=== PATIENT | female | born 1950 | race Caucasian/White ===

== ENCOUNTER 2018-07-30 09:26 | Outpatient (REF) | payer MEDICARE, SELFPAY ==
[2018-07-30 13:11] LABS: Anion Gap 7.9 mmol/L (3-11); BUN 18 mg/dL (7-18); CO2 30.1 mmol/L (21.0-32.0); CREATININE 0.68 mg/dL (0.55-1.02); Calcium 9.4 mg/dL (8.5-10.1); Chloride 103 mmol/L (98-107); Cholesterol 210 mg/dL (50-200); Glucose 104 mg/dL (70-100); HDL Cholesterol 66 mg/dL (40-60); LDL CHOLESTEROL 118 mg/dL (<100); Potassium 4.8 mmol/L (3.5-5.1); Sodium 141 mmol/L (136-145); Triglyceride 87 mg/dL (30-150)
== END 2018-07-30 09:46 ==
LOC: NCHCN 09:26
PROVIDERS: PCP Nurse Practitioner Family; Visit Provider Nurse Practitioner Family
DX: E78.5 Hyperlipidemia, unspecified (principal)
CPT/HCPCS: 80048; 80061; 83721

== ENCOUNTER 2018-08-30 01:26 | Outpatient (CLI) | payer MEDICARE, SELFPAY ==
--- NOTE | 2018-08-30 10:30 | DI.MAMMO_ITS ---
SYMPTOM/DIAGNOSIS: SCREENING, [facility] Z00.00 BILATERAL SCREENING MAMMOGRAM: Mammograms were interpreted according to the usual protocol including computer analysis with CAD system, tomosynthesis and C view imaging. Comparison is made with exams from 2011 through 2017. The breasts are composed of heterogeneously dense fibroglandular tissue, breast density category C. No suspicious masses or suspicious microcalcifications are seen. There has been no significant change. IMPRESSION: Category 1, negative mammogram. Yearly screening mammography is recommended. Breast density category C. SA ASSESSMENT OF FINDINGS: Negative. Category 1. Patient will receive a letter notifying them of these results. Bi-RADS category C. The breasts are heterogeneously dense, which may obscure small masses.
== END 2018-08-30 01:46 ==
PROVIDERS: PCP Nurse Practitioner Family; Visit Provider Nurse Practitioner Family
DX: Z12.31 Encounter for screening mammogram for malignant neoplasm of breast (principal)
CPT/HCPCS: 77063; 77067

== ENCOUNTER 2020-09-13 19:13 | Outpatient (REF) | payer MEDICARE, SELFPAY ==
[2020-09-13 19:43] LABS: HCT 43.8 % (36.0-46.0); HGB 13.9 g/dL (11.2-15.7); MCH 30.3 pg (27.0-33.0); MCHC 31.7 % (32.0-36.0); MCV 95.6 fL (80-95); MPV 10.6 fL (8.0-11.0); Platelet Count 241 10^3/uL (130-400); RBC 4.58 10^6/uL (3.93-5.22); RDW 13.3 % (11.7-14.6); RDW-SD 47.5 fL; WBC 5.72 10^3/uL (4.4-10.8)
[2020-09-13 19:57] LABS: ALT 41 U/L (14-59); AST 22 U/L (15-37); Albumin 3.8 g/dL (3.4-5.0); Alkaline Phosphatase 92 U/L (46-116); Anion Gap 9.6 mmol/L (3-11); BUN 22 mg/dL (7-18); Bilirubin, Total 0.5 mg/dL (0.2-1.0); CO2 29.4 mmol/L (21.0-32.0); CREATININE 0.8 mg/dL (0.55-1.02); Calcium 9.7 mg/dL (8.5-10.1); Calculated LDL 108 mg/dL (<100); Chloride 105 mmol/L (98-107); Cholesterol 187 mg/dL (<200); Glucose 102 mg/dL (74-106); HDL Cholesterol 61 mg/dL (40-60); Potassium 4.4 mmol/L (3.5-5.1); Sodium 144 mmol/L (136-145); Total Protein 6.9 g/dL (6.4-8.2); Triglyceride 94 mg/dL (<150)
== END 2020-09-13 19:14 | disposition home or self-care (01) ==
LOC: NCHCN 19:13
PROVIDERS: PCP Nurse Practitioner Family; Visit Provider Nurse Practitioner Family
DX: Z00.00 Encounter for general adult medical examination without abnormal findings (principal); E78.5 Hyperlipidemia, unspecified
CPT/HCPCS: 80053; 80061; 85027

== ENCOUNTER 2020-11-07 15:10 | Outpatient (REF) | payer MEDICARE, SELFPAY ==
[2020-11-09 11:13] LABS: Campylobacter PCR Negative (Negative); Salmonella PCR Negative (Negative); Shiga Toxin PCR Negative (Negative); Shigella/Enteroinvasive Ecoli Negative (Negative)
== END 2020-11-07 15:11 | disposition home or self-care (01) ==
LOC: LBN 15:10
PROVIDERS: PCP Nurse Practitioner Family; Visit Provider Internal Medicine Gastroenterology
DX: K52.9 Noninfective gastroenteritis and colitis, unspecified (principal)
CPT/HCPCS: 87329; 87505; 83630; 87177

== ENCOUNTER → 2021-09-13 00:44 | Outpatient (CLI) | payer MEDICARE, OTHER, SELFPAY ==
--- NOTE | 2021-09-13 | DI.DEXA_ITS ---
Exam(s) XR DEXA BONE DENSITY W/WO SUMMER EXAM: XR DEXA BONE DENSITY W/WO SUMMER CLINICAL HISTORY: OSTEOPENIA, M85.88 TECHNIQUE: [employer] C densitometer analysis of left hip, lumbar spine and left forearm. COMPARISON: 2017 FINDINGS: Lateral view of the thoracic and lumbar spine shows no evidence of compression fractures. Bone mineral density measurements of the lumbar spine correspond to a total T-score of -0.7, in the normal range.. This is not significantly changed from the prior exam Bone mineral density measurements of the left hip correspond to a total T-score of 0. The femoral n sahara T-score is -1.1, in the osteopenic range. The hip bone mineral density has decreased 6.9 percen t compared with 2017.. The left forearm bone mineral density measurements correspond to a T-score of the distal 3rd of -1.9 , in the osteopenic range. This represents a 4.1 percent decrease compared to 2017.. IMPRESSION: Osteopenia of the left forearm and left hip. Normal bone mineral density of the lumbar spine
== END ==
PROVIDERS: PCP Nurse Practitioner Family; Visit Provider Internal Medicine Gastroenterology
DX: M85.89 Other specified disorders of bone density and structure, multiple sites (principal)
CPT/HCPCS: 77080

== ENCOUNTER → 2021-09-13 00:45 | Outpatient (CLI) | payer MEDICARE, OTHER, SELFPAY ==
--- NOTE | 2021-09-13 11:20 | DI.MAMMO_ITS ---
Exam(s) MAMMO SCREENING EXAM: MAMMO SCREENING CLINICAL HISTORY: SCREENING FOR BREAST CA, Z12.39 TECHNIQUE: Mammograms were interpreted according to the usual protocol including computer analysis w [employer] CAD system, tomosynthesis and C-view imaging. COMPARISON: 2013 through 2018 FINDINGS: The breasts are composed of scattered fibroglandular densities, Breast Density category B. No suspicious masses or suspicious microcalcifications are seen. No skin thickening or abnormal axillary lymph nodes are seen. There has been no significant change from prior exams. IMPRESSION: BI-RADS Category 1, Negative mammogram Yearly screening mammography is recommended. Breast Density - Category B, scattered fibroglandular densities. A negative radiographic report should not delay biopsy if a dominant or clinically suspicious mass is present. Up to ten percent of cancers are not identified on mammography. A negative report may reinforce clinical impression. Adenosis and dense breasts may obscure an underlying neoplasm. False positive reports average 6 to 10%. Patient will receive a letter notifying them of these results.
== END ==
PROVIDERS: PCP Nurse Practitioner Family; Visit Provider Internal Medicine Gastroenterology
DX: Z12.31 Encounter for screening mammogram for malignant neoplasm of breast (principal)
CPT/HCPCS: 77063; 77067; 77080

== ENCOUNTER 2021-09-25 01:39 | Outpatient (CLI) | payer MEDICARE, OTHER, SELFPAY ==
[2021-09-26 05:22] LABS: Vitamin D 25 Total 34.5 ng/mL (30-100)
== END 2021-09-25 01:40 | disposition home or self-care (01) ==
LOC: LBO 01:40
PROVIDERS: PCP Nurse Practitioner Family; Visit Provider Internal Medicine Gastroenterology
DX: M85.9 Disorder of bone density and structure, unspecified (principal)
CPT/HCPCS: 36415; 82306

== ENCOUNTER 2022-01-06 11:48 | Outpatient (CLI) | payer MEDICARE, OTHER, SELFPAY ==
--- NOTE | 2022-01-06 11:15 | DI.RAD_ITS ---
Exam(s) XR KNEE LT 3V AP,LAT,ROSA EXAM: XR KNEE LT 3V AP,LAT,ROSA CLINICAL HISTORY: s/p fall. TECHNIQUE: 2D digital imaging was performed. Three views. COMPARISON: No exams were available for comparison FINDINGS: BONES: No acute fracture is present. No bony destructive lesion is seen. Mild periarticular spurring throughout. JOINTS: The knee is normally aligned. No joint effusion is seen. SOFT TISSUE: Small bony density seen lateral to patella. IMPRESSION: Mild degenerative changes. Small bony density lateral to the patella could represent a joint space l oose body. DATA REPOSITORY: RADIATION DOSE DELIVERED:
--- NOTE | 2022-01-06 11:15 | DI.RAD_ITS ---
Exam(s) XR KNEE RT 3V AP,LAT,ROSA EXAM: XR KNEE RT 3V AP,LAT,ROSA CLINICAL HISTORY: history of surgery. TECHNIQUE: 2D digital imaging was performed. Three views. COMPARISON: No exams were available for comparison FINDINGS: The patella is dislocated laterally with respect to the femur. There is severe narrowing of the later al femoral tibial joint space. There is some subluxation laterally of the tibia with respect to the d istal femur. There is no visible joint effusion. IMPRESSION: Lateral dislocation of the patella. Degenerative changes, greatest of lateral femoral tibial joint. DATA REPOSITORY: RADIATION DOSE DELIVERED:
== END 2022-01-06 11:49 | disposition home or self-care (01) ==
LOC: DIORS 11:48
PROVIDERS: PCP Nurse Practitioner Family; Referring Provider Nurse Practitioner Family; Visit Provider Physician Assistant Surgical
DX: M17.12 Unilateral primary osteoarthritis, left knee; M17.11 Unilateral primary osteoarthritis, right knee; M23.92 Unspecified internal derangement of left knee; S83.004D Unspecified dislocation of right patella, subsequent encounter; X58.XXXD Exposure to other specified factors, subsequent encounter
CPT/HCPCS: 20610; 73562; 99203; J1040

== ENCOUNTER 2022-02-25 18:19 | Outpatient (REF) | payer MEDICARE, OTHER, SELFPAY ==
[2022-02-25 17:47] LABS: HCT 42.9 % (36.0-46.0); HGB 13.7 g/dL (11.2-15.7); MCH 29.8 pg (27.0-33.0); MCHC 31.9 % (32.0-36.0); MCV 94 fL (80-95); MPV 10.6 fL (8.0-11.0); Platelet Count 279 10^3/uL (130-400); RBC 4.59 10^6/uL (3.93-5.22); RDW 13.3 % (11.7-14.6); RDW-SD 45.8 fL; WBC 5.58 10^3/uL (4.4-10.8)
[2022-02-25 17:58] LABS: BUN 22 mg/dL (7-18); CREATININE 0.8 mg/dL (0.55-1.02); Calcium 9.4 mg/dL (8.5-10.1); Chloride 105 mmol/L (98-107); Estimated GFR 79.22 (mL/min/1.73m2); Glucose 95 mg/dL (74-106); Potassium 4.2 mmol/L (3.5-5.1); Sodium 141 mmol/L (136-145); TSH (W/Ref FT4) 0.79 uIU/mL (0.36-3.74)
== END 2022-02-25 18:20 | disposition home or self-care (01) ==
LOC: NCHCN 18:19
PROVIDERS: PCP Nurse Practitioner Family; Visit Provider Nurse Practitioner Family
DX: R00.2 Palpitations (principal)
CPT/HCPCS: 80048; 85027; 84443

== ENCOUNTER 2022-03-27 08:43 | Outpatient (RCR) | payer MEDICARE, OTHER, SELFPAY | END 2022-04-08 23:59 | disposition home or self-care (01) | LOC: CARDOPNVT 08:43 | PROVIDERS: PCP Nurse Practitioner Family; Visit Provider Nurse Practitioner Family | CPT/HCPCS: 93225; 93226 ==

== ENCOUNTER 2022-04-10 10:18 | Outpatient (RCR) | payer MEDICARE, OTHER, SELFPAY ==
--- NOTE | 2022-04-10 10:15 | HOLTER_ITS ---
APPROVED REPORT Conclusion This is a 48-hour Holter monitor ordered for palpitations Predominant rhythm was sinus with an average heart rate of 71. Minimum was 58, maximum 102 There were very rare isolated atrial and ventricular ectopic beats There was 1 atrial triplet, one 5 beat self-limited atrial run There was no atrial fibrillation, no high-grade AV block, no pauses greater than 3 seconds
== END 2022-05-06 23:59 | disposition home or self-care (01) ==
LOC: CARDOPNVT 10:18
PROVIDERS: PCP Nurse Practitioner Family; Visit Provider Internal Medicine Cardiovascular Disease
DX: R00.2 Palpitations (principal); I49.1 Atrial premature depolarization
CPT/HCPCS: 93227; 93225; 93226

== ENCOUNTER 2022-08-12 12:42 | Outpatient (RCR) | payer MEDICARE, OTHER, SELFPAY ==
--- NOTE | 2022-08-12 13:00 | HOLTER_ITS ---
APPROVED REPORT Conclusion This is a 48-hour Holter monitor ordered for palpitations Rhythm throughout was sinus with an average heart rate of 78. Minimum was 59, maximum 122 There were very rare isolated atrial and ventricular ectopic beats There was no atrial fibrillation, no SVT, no high-grade AV block, no pauses greater than 3 seconds
== END 2022-09-05 23:59 | disposition home or self-care (01) ==
LOC: CARDOPNVT 12:42
PROVIDERS: PCP Nurse Practitioner Family; Visit Provider Nurse Practitioner Family
DX: R00.2 Palpitations (principal); I49.3 Ventricular premature depolarization
CPT/HCPCS: 93227; 93225; 93226

== ENCOUNTER 2022-08-25 01:19 | Outpatient (CLI) | payer MEDICARE, OTHER, SELFPAY ==
--- NOTE | 2022-08-25 | ETT_ITS ---
APPROVED REPORT Exam: Exercise Treadmill Patient Location: Out-Patient Room/Bed: Stress Nurse: Fanta Naik RN Ordering Provider:RUBEN GALLAGHER [place], Contact Number: [phone] BMI: 29.26 Baseline Rhythm: Sinus Rhythm Indications: Palpitations, SOB, Dizziness Medical History Medical History: HLD, GERD, osteopenia, hx of dizziness, osteoarthritis Cardiac Medications: Aleve, aspirin, atorvastatin, omeprazole Allergies: None known Cardiac Risk Factors: Family hx, HLD Previous Cardiac Procedures: None Pretest Chest Pain Characteristics: None Exercise History: Indeterminate Physical Disabilities: Knees Lung Sounds: Clear to auscultation Heart Sounds: Regular Stress Test Details Rest Stress HR Resting HR Supine: 62 bpm Max Heart Rate (APMHR): 149 bpm Resting HR Standin bpm Target HR (85% APMHR): 127 bpm Max HR Achieved: 145 bpm % of APMHR: 97 Recovery HR: 70 bpm HR response to stress: Normal HR response to stress BP Resting BP Supine: 126/82 mmHg Resting BP Standin/78 mmHg Max BP: 162/80 mmHg Recovery BP: 132/82 mmHg BP response to stress: Normal blood pressure response to stress. ECG Resting ECG: Sinus Rhythm Ectopy: None Stress ECG: Sinus Tachycardia ST Change: Horizontal ST depression Lead(s): inferior leads Stage: 1, [address] Deviation: 1.5-2 mm Arrhythmia: None Recovery ECG: Sinus Rhythm Recovery ST Change: No significant ST segment changes noted Recovery Arrhythmia: None Comment: ST depression recovered quickly. Clinical Reason for Termination: Target HR Achieved Stress Symptoms: Moderate SOB, fatigue Exercise duration: 04 min10 sec Highest Stage Reached: Stage 2: 2.5 mph at 12% grade. Exercise capacity: 6.04 METs Angina Score: None Barrera Treadmill Score: -1.5 Rate Pressure Product: [id number] Stress ECG Conclusion 1. Resting electrocardiogram showed poor R wave progression 2. Patient exercised on a Giovanni protocol completed a workload of 6.04 METS, limited by shortness of b reath and fatigue 3. Accelerated heart rate response to exercise. The patient achieved 97% of predicted heart rate for age 4. Electrocardiographic portion of the test was negative for myocardial ischemia 5. There were no significant dysrhythmias Barrera Treadmill Score is -1.5 which is Moderate risk. Stress Test Summary STAGE Time (mins) Speed (mph) Grade (%) HR BP SpO2 SYMPTOMS METS Supine 62 126/82 97 Standing 74 120/78 97 1 3 1.7 10 136 142/88 96 Mod SOB 4.5 2 6 2.5 12 145 Mod SOB 7 1 min recovery 113 162/80 98 Resovling SOB 3 min recovery 75 142/84 98 Resovling SOB 6 min recovery 70 132/82 99 SOB resolved
== END 2022-08-25 01:39 ==
LOC: DI 01:19
PROVIDERS: PCP Nurse Practitioner Family; Visit Provider Nurse Practitioner Family
DX: R06.02 Shortness of breath (principal)
CPT/HCPCS: 93016; 93018; 93017

== ENCOUNTER 2022-10-07 15:46 | Emergency (ER) | payer MEDICARE, OTHER, SELFPAY ==
[2022-10-07] VITALS (21 sets, daily range): BP systolic 124–167; BP diastolic 51–95; PULSE 70–81; RESP 12–21; TEMP 36.3; O2SAT 95–99
--- NOTE | 2022-10-07 15:45 | RT.EKG_ITS ---
APPROVED REPORT Exam: Resting ECG Reason for Exam: Palpitations Patient Location: E HR:73 bpm ECG Measurements Heart Rate 73 AXIS TN 124 P 30 QRSd 83 QRS 89 QT 401 T 50 QTc 443 Conclusion Sinus rhythm...normal P axis, V-rate 60- 99 Low voltage, precordial leads...precordial leads <1.0mV
--- NOTE | 2022-10-07 16:00 | DI.RAD_ITS ---
Exam(s) XR CHEST 2V PA LATERAL EXAM: XR CHEST 2V PA LATERALzz CLINICAL HISTORY: Palpitations, TECHNIQUE: 2D digital imaging was performed. COMPARISON: CR PORTABLE CHEST ONE VIEW from 01/20/2013 FINDINGS: HEART: Normal size. Aorta: Not dilated. PULMONARY VASCULATURE: Normal. LUNGS: Clear. PLEURAL SPACE: No pleural effusion or pneumothorax. BONE:Unremarkable for age. IMPRESSION: No acute abnormality. DATA REPOSITORY: RADIATION DOSE DELIVERED:
--- NOTE | 2022-10-07 16:07 | ED.GENADUL_ITS ---
Discharge Plan Disposition Patient Disposition: Home Condition: Stable Discharge Details Clinical Impression: Heart palpitations, Hypertension Primary Care Provider: Liza Antony ED Provider: Gypsy Smith Home Meds and New Rx's Prescriptions: New metoprolol tartrate 25 mg tablet 12.5 mg PO DAILY Qty: 14 0RF Rx Instructions: Take half a tablet daily. Stop if dizzy or lightheaded. Continued Konsyl Sugar-Free 300 GM powder 300 g PO BID atorvastatin 20 mg tablet 20 mg PO QHS fluticasone propionate [Allergy Relief (fluticasone)] 50 mcg/actuation spray,suspension 2 spray intranasal DAILY Rx Instructions: administer into each nostril omeprazole 20 mg capsule,delayed release(DR/EC) 20 mg PO DAILY estradiol [Vagifem] 10 mcg tablet 10 mcg vaginal .COMPLEX Rx Instructions: 10 mcg vaginally TWICE PER WEEK; aspirin [Adult Aspirin Regimen] 81 mg tablet,delayed release (DR/EC) 81 mg PO DAILY omega-3 fatty acids-fish oil 340-1,000 mg capsule 340 cap PO DAILY naproxen sodium [Aleve] 220 mg tablet 440 mg PO DAILY PRN multivitamin Tablet 1 tab PO DAILY Discharge Instructions Instructions: Heart Palpitations (ED), Hypertension (ED) Additional Instructions: Take the metoprolol as directed once daily. Please check your blood pressure and heart rate at the same time every day. Please follow-up with your PCP. Follow up with primary care provider in 3-5 days. Return to ED sooner if any worsening chest pain, arm pain, shortness of breath, lightheadedness dizziness or concerns. Increase oral fluids. If you check your heart rate and blood pressure and the heart rate is less than 60 or your blood pressure is less than 90 on the top number please stop taking the metoprolol. At this time there is no evidence of pneumonia, heart attack or heart damage. You are placed on care management list to follow-up with your PCP. Referrals: Liza Antony [Primary Care Provider] - 5 days Discharge Data Discharge Date/Time-TO BE ENTERED AT DEPARTURE: 10/07/22 18:13 Medical Decision Making 72-year-old female presents to the ER with a chief complaint of heart fluttering and palpitations which has been ongoing for the last 3 hours. Patient reports that at rest she will have intermittent episodes of pounding in her chest. This is associated with arm heaviness and left arm pain. It has resolved upon arrival heart rate is 76 normal sinus rhythm. She has recently had a Holter monitor placed on August 12 of this year and an exercise stress test on August 25 of this year. She does take a baby aspirin daily. She does have a history of hyperlipidemia and osteoarthritis, GERD. She denies any chest pain or chest heaviness, denies any shortness of breath. She reports that she feels heavy when this episodes occur. She does report occasional diarrhea none in the last couple of days. No vomiting she does endorse nausea. She endorses occasional alcohol couple glasses of wine she is a non-smoker. Cardiac work-up ordered including EKG and serial troponins, D-dimer chest x-ray and TSH level with refractory T4. EKG at this time shows normal sinus rhythm. EKG was reviewed by Dr. Farah ER attending, no STEMI, old EKG available for review, please see his official report. At this time work-up is relatively within normal limits, patient is slightly hypertensive blood pressure 167/95, additional reading greater than 140/90, she reports she did have an episode of palpitations which was not captured on her monitor. CBC within normal limits, D-dimer negative, CMP shows slightly elevated BUN at 21, glucose 145, TSH within normal limits, initial troponin less than 50. Did discuss possible starting on metoprolol 12.5 mg p.o. which was ordered and close follow-up with PCP in 2 weeks or less to discuss Holter monitor results and stress test results. Patient and family verbalized understanding. Discussed risks and benefits of awaiting serial Troponin, patient requesting to be discharged home. Will place patient on care management list to have a sooner PCP appointment within 2 weeks. Patient also states that she will call the office to get a sooner appointment to discuss her test. We will send patient home with prescription for metoprolol 12.5 mg once daily. I did discuss medication and red flags to stop for and or to return to the ER. Patient has remained chest pain-free. This text was generated using [employer] system, please disregard any oddities of phrase or misspellings. Medical Records Medical records reviewed: Yes I reviewed the patient's medical records. Medical records narrative: Patient had a Holter monitor on August 12 which showed rare atrial ectopic beats, DATE/TIME OF SERVICE: 08/12/22 APPROVED REPORT Conclusion This is a 48-hour Holter monitor ordered for palpitations Rhythm throughout was sinus with an average heart rate of 78.? Minimum was 59, maximum 122 There were very rare isolated atrial and ventricular ectopic beats There was no atrial fibrillation, no SVT, no high-grade AV block, no pauses greater than 3 seconds <Electronically signed by DENZEL LONGORIA MD in OV> ? E-Sign Date:? 08/18/22 ? E-Sign Time:? 0811? stress test on August 25, 2022 which showed poor R wave progression negative for myocardial ischemia. Conclusion noted below: Stress ECG Conclusion 1. Resting electrocardiogram showed poor R wave progression 2. Patient exercised on a Giovanni protocol completed a workload of 6.04 METS, limited by shortness of breath and fatigue 3. Accelerated heart rate response to exercise.? The patient achieved 97% of predicted heart rate for age 4. Electrocardiographic portion of the test was negative for myocardial ischemia 5. There were no significant dysrhythmias Barrera Treadmill Score is -1.5 which is Moderate risk. Stress Test Summary STAGE Time (mins) Speed (mph) Grade (%) HR BP SpO2 SYMPTOMS METS Supine 62 126/82 97 Standing 74 120/78 97 1 3 1.7 10 136 142/88 96 Mod SOB 4.5 2 6 2.5 12 145 Mod SOB 7 1 min recovery 113 162/80 98 Resovling SOB 3 min recovery 75 142/84 98 Resovling SOB 6 min recovery 70 132/82 99 SOB resolved Dictated by:? VON VELEZ,DENZEL BEJARANO Lab Data Lab results reviewed: Yes I reviewed the patient's lab results. Labs: Laboratory Tests Range/Units 10/07/22 10/07/22 10/07/22 16:20 16:20 16:20 WBC (4.4-10.8) 10^3/uL 5.93 RBC (3.93-5.22) 10^6/uL 4.60 Hgb (11.2-15.7) g/dL 13.9 Hct (36.0-46.0) % 42.5 MCV (80-95) fL 92 MCH (27.0-33.0) pg 30.2 MCHC (32.0-36.0) % 32.7 RDW (11.7-14.6) % 13.2 Plt Count (130-400) 10^3/uL 257 MPV (8.0-11.0) fL 9.7 Immature Gran % 0.3 Neutrophils % 59.1 Lymphocytes % 29.8 Monocytes % 7.9 Eosinophils % 2.2 Basophils % 0.7 Nucleated RBC % (0.0-0.3) % 0.0 Absolute Neutrophils (1.2-6.7) 10^3/uL 3.50 Absolute Lymphocytes (1.2-3.4) 10^3/uL 1.77 Absolute Monocytes (0.1-0.8) 10^3/uL 0.47 Absolute Eosinophils (0.0-0.7) 10^3/uL 0.13 Absolute Basophils (0.0-0.2) 10^3/uL 0.04 D-Dimer (<500) ng/mlFEU 333 Sodium (136-145) mmol/L 143 Potassium (3.5-5.1) mmol/L 3.6 Chloride (98-107) mmol/L 106 Carbon Dioxide (21.0-32.0) mmol/L 29.9 Anion Gap (3-11) mmol/L 7.1 BUN (7-18) mg/dL 21 H Creatinine (0.55-1.02) mg/dL 0.8 Est GFR (CKD-EPI 2020) (mL/min/1.73m2) 78.72 Glucose (74-106) mg/dL 145 H Calcium (8.5-10.1) mg/dL 9.2 Magnesium (1.8-2.4) mg/dL 2.1 Total Bilirubin (0.2-1.0) mg/dL 0.2 AST (15-37) U/L 20 ALT (14-59) U/L 28 Alkaline Phosphatase (46-116) U/L 92 Troponin I (<or=60) ng/L < 50 Total Protein (6.4-8.2) g/dL 7.0 Albumin (3.4-5.0) g/dL 3.7 TSH (0.36-3.74) uIU/mL Range/Units 10/07/22 16:20 WBC (4.4-10.8) 10^3/uL RBC (3.93-5.22) 10^6/uL Hgb (11.2-15.7) g/dL Hct (36.0-46.0) % MCV (80-95) fL MCH (27.0-33.0) pg MCHC (32.0-36.0) % RDW (11.7-14.6) % Plt Count (130-400) 10^3/uL MPV (8.0-11.0) fL Immature Gran % Neutrophils % Lymphocytes % Monocytes % Eosinophils % Basophils % Nucleated RBC % (0.0-0.3) % Absolute Neutrophils (1.2-6.7) 10^3/uL Absolute Lymphocytes (1.2-3.4) 10^3/uL Absolute Monocytes (0.1-0.8) 10^3/uL Absolute Eosinophils (0.0-0.7) 10^3/uL Absolute Basophils (0.0-0.2) 10^3/uL D-Dimer (<500) ng/mlFEU Sodium (136-145) mmol/L Potassium (3.5-5.1) mmol/L Chloride (98-107) mmol/L Carbon Dioxide (21.0-32.0) mmol/L Anion Gap (3-11) mmol/L BUN (7-18) mg/dL Creatinine (0.55-1.02) mg/dL Est GFR (CKD-EPI 2020) (mL/min/1.73m2) Glucose (74-106) mg/dL Calcium (8.5-10.1) mg/dL Magnesium (1.8-2.4) mg/dL Total Bilirubin (0.2-1.0) mg/dL AST (15-37) U/L ALT (14-59) U/L Alkaline Phosphatase (46-116) U/L Troponin I (<or=60) ng/L Total Protein (6.4-8.2) g/dL Albumin (3.4-5.0) g/dL TSH (0.36-3.74) uIU/mL 0.78 ECG Data Prior ECG tracings: available for review Core Measures AMI Core Measures Followed: No Measure exclusions: not indicated HPI General Mode of arrival: ambulatory . Date/Time Provider Initiated Documentation: 10/07/22 15:48 . Limitations to Documentation: no limitations . Information obtained by: patient, RN notes reviewed and old records reviewed . HPI Narrative: 72-year-old female presents to the ER with a chief complaint of heart fluttering and palpitations which has been ongoing for the last 3 hours. Patient reports that at rest she will have intermittent episodes of pounding in her chest. This is associated with arm heaviness and left arm pain. It has resolved upon arrival heart rate is 76 normal sinus rhythm. She has recently had a Holter monitor placed on August 12 of this year and an exercise stress test on August 25 of this year. She does take a baby aspirin daily. She does have a history of hyperlipidemia and osteoarthritis, GERD. She denies any chest pain or chest heaviness, denies any shortness of breath. She reports that she feels heavy when this episodes occur. She does report occasional diarrhea none in the last couple of days. No vomiting she does endorse nausea. She endorses occasional alcohol couple glasses of wine she is a non-smoker. Related Data Home Medications Medication Instructions Recorded Confirmed psyllium husk 6 gram/6 gram oral 300 g PO BID 11/11/13 01/08/22 powder (Konsyl Sugar-Free) aspirin 81 mg tablet,delayed 81 mg PO DAILY 11/18/21 10/07/22 release (Adult Aspirin Regimen) atorvastatin 20 mg tablet 20 mg PO QHS 11/18/21 10/07/22 estradiol 10 mcg vaginal tablet 10 mcg vaginal .COMPLEX 11/18/21 01/08/22 (Vagifem) fluticasone propionate 50 2 spray intranasal DAILY 11/18/21 10/07/22 mcg/actuation nasal spray,suspension (Allergy Relief (fluticasone)) multivitamin 1 tab PO DAILY 11/18/21 10/07/22 naproxen sodium 220 mg tablet 440 mg PO DAILY PRN 11/18/21 10/07/22 (Aleve) omega-3 fatty acids-fish oil 340 340 cap PO DAILY 11/18/21 01/08/22 mg-1,000 mg capsule omeprazole 20 mg capsule,delayed 20 mg PO DAILY 11/18/21 10/07/22 release metoprolol tartrate 25 mg tablet 12.5 mg PO DAILY Palpitations #14 10/07/22 tabs Previous Rx's Medication Instructions Recorded metoprolol tartrate 25 mg tablet 12.5 mg PO DAILY Palpitations #14 10/07/22 tabs Allergies Allergy/AdvReac Type Severity Reaction Status Date / Time No Known Allergies Allergy Unverified 10/07/22 15:58 General Stated Complaint: Palpitatns AUDREY: 3 Review of Systems All systems reviewed & are unremarkable except as noted in HPI and below Cardiovascular Cardiovascular: Reports as per HPI, Reports irregular heart rhythm, Reports radiating jaw, neck or arm pain, Denies dyspnea and Reports other (Arm heaviness and left arm pain) Respiratory Respiratory: Denies cough, Denies excessive phlegm production, Denies dyspnea, Denies stridor and Denies wheezing Gastrointestinal Gastrointestinal: Denies abdominal pain, Reports diarrhea (None in the last couple of days she attributes it to lactose intolerance), Reports nausea and Denies vomiting Allergic/Immunologic Allergic/Immunologic: Denies wheezing PFSH All Active Problems (Updated 10/07/22 @ 17:57 by Gypsy Smith NP) Heart palpitations (Acute) Hypertension (Chronic) Dislocation of patella, right, closed (Chronic) Chronic Internal derangement of left knee (Acute) DEPO 01/06/22 Medical History Hyperlipemia, mixed Osteoarthritis Surgical History Arthroplasty of knee right Family History Mother Irritable bowel syndrome (IBS) Brother Irritable bowel syndrome (IBS) Social History Smoking/Tobacco Use Status: Never Smoking risk assessment performed?: Yes Drug use: Never Substance use type: does not use Do you feel safe at home: Yes Do you feel safe in your relationship?: Yes Exam Narrative Exam Narrative: Constitutional: Alert and oriented x3. Appears stated age. Normal body habitus. Head: Normocephalic, no trauma. Eyes: Pupils PERRL, Red reflex noted, EOM's intact. Eyelids symmetrical without lesions, discharge, or swelling. ENT: Bilateral TM's WNL, External ear normal to inspection, no mastoid TTP, swelling, or erythema, Nasal turbinates WNL, no nasal discharge. Normal dentition, Posterior pharynx WNL, no exudate. Chest: RRR, Normal S1, S2, distal pulses intact. Resp: Lungs clear to auscultation bilaterally, no wheezes, rales, or rhonchi. Abdomen: Soft, non-distended, Normoactive bowel sounds all 4 quads. Musculoskeletal: Normal gait, 5/5 strength to all four extremities. No significant pitting edema noted to bilateral lower extremities. Skin: No suspicious rashes or lesions. Capillary refill less than 2 sec. Neurologic: Cranial nerves II-XII intact. Alert and oriented x 3. Motor: No deficits noted. Sensory: Intact bilaterally all 4 extremities. . Hematologic/Lymphatic: No ecchymosis, no lymphadenopathy. Course Vital Signs Vital signs: Vital Signs Temperature 36.3 C L 10/07/22 15:51 Pulse 76 10/07/22 15:51 Respiratory Rate 16 10/07/22 15:51 Blood Pressure 158/77 H 10/07/22 15:51 Pulse Oximetry 99 10/07/22 15:51 Temperature 36.3 C L 10/07/22 15:51 Pulse 76 10/07/22 16:02 Pulse 71 10/07/22 16:03 Respiratory Rate 16 10/07/22 16:03 Respiratory Effort Normal 08/01/23 15:56 Blood Pressure 167/95 H 10/07/22 16:02 Blood Pressure Mean 113 10/07/22 16:02 Pulse Oximetry 98 10/07/22 16:03 Oxygen Delivery Method Room Air 10/07/22 15:51 Oxygen Flow Rate 0 10/07/22 15:51
[2022-10-07] MEDS: Aspirin 81 MG CHEW 243 MG CH (16:13)
[2022-10-07 16:30] LABS: Abs Immature Grans 0.02 10^3/uL (0.0-0.06); Absolute Basophil Count 0.04 10^3/uL (0.0-0.2); Absolute Eosinophil Count 0.13 10^3/uL (0.0-0.7); Absolute Lymphocyte Count 1.77 10^3/uL (1.2-3.4); Absolute Monocyte Count 0.47 10^3/uL (0.1-0.8); Basophils % 0.7; Eosinophils % 2.2; HCT 42.5 % (36.0-46.0); HGB 13.9 g/dL (11.2-15.7); Immature Grans % 0.3; Lymphocytes % 29.8; MCH 30.2 pg (27.0-33.0); MCHC 32.7 % (32.0-36.0); MCV 92 fL (80-95); MPV 9.7 fL (8.0-11.0); Monocytes % 7.9; Neutrophils % 59.1; Platelet Count 257 10^3/uL (130-400); RDW 13.2 % (11.7-14.6); RDW-SD 45.5 fL; WBC 5.93 10^3/uL (4.4-10.8)
[2022-10-07 16:49] LABS: ALT 28 U/L (14-59); AST 20 U/L (15-37); Albumin 3.7 g/dL (3.4-5.0); Alkaline Phosphatase 92 U/L (46-116); Anion Gap 7.1 mmol/L (3-11); BUN 21 mg/dL (7-18); Bilirubin, Total 0.2 mg/dL (0.2-1.0); CO2 29.9 mmol/L (21.0-32.0); CREATININE 0.8 mg/dL (0.55-1.02); Calcium 9.2 mg/dL (8.5-10.1); Chloride 106 mmol/L (98-107); Estimated GFR 78.72 (mL/min/1.73m2); Glucose 145 mg/dL (74-106); Magnesium 2.1 mg/dL (1.8-2.4); Potassium 3.6 mmol/L (3.5-5.1); Sodium 143 mmol/L (136-145)
[2022-10-07 16:50] LABS: Troponin I < 50 ng/L (<or=60)
[2022-10-07 16:58] LABS: TSH (W/Ref FT4) 0.78 uIU/mL (0.36-3.74)
[2022-10-07 17:01] LABS: D-Dimer 333 ng/mlFEU (<500)
[2022-10-07] MEDS: Metoprolol 12.5 MG TAB PO (17:48)
--- NOTE | 2022-10-07 17:52 | NUR.NOTE ---
Referral to PCP Cassia at [facility]. 2 wks or less. For palpitations and new med. Nursing Note:
== END 2022-10-07 18:13 | disposition home or self-care (01) ==
PROVIDERS: Emergency Provider Registered Nurse Emergency; PCP Nurse Practitioner Family
DX: R00.2 Palpitations (principal); I10 Essential (primary) hypertension; E78.5 Hyperlipidemia, unspecified; Z79.82 Long term (current) use of aspirin
CPT/HCPCS: 36415; 80053; 93005; 99284; 71046; 83735; 84443; 84484; 85025; 85379; 93010; 99283; J3490

== ENCOUNTER 2022-10-31 07:42 | Outpatient (CLI) | payer MEDICARE, OTHER, SELFPAY ==
--- NOTE | 2022-10-31 07:30 | RT.EKG_ITS ---
APPROVED REPORT Exam: Resting ECG Reason for Exam: palpitations Patient Location: O HR:64 bpm ECG Measurements Heart Rate 64 AXIS MI 130 P 21 QRSd 94 QRS -23 QT 393 T 2 QTc 406 Conclusion Sinus rhythm...normal P axis, V-rate 50- 99 Normal Electrocardiogram
== END 2022-10-31 07:43 | disposition home or self-care (01) ==
LOC: DI.CARD 07:43
PROVIDERS: PCP Nurse Practitioner Family; Visit Provider Internal Medicine Cardiovascular Disease
DX: R00.2 Palpitations (principal); R42 Dizziness and giddiness
CPT/HCPCS: 93010

== ENCOUNTER → 2022-10-31 11:02 | Outpatient (BNVA) | payer MEDICARE, OTHER, SELFPAY | PROVIDERS: PCP Nurse Practitioner Family; Referring Provider Nurse Practitioner Family; Visit Provider Internal Medicine Cardiovascular Disease | DX: I10 Essential (primary) hypertension (principal); R00.2 Palpitations | CPT/HCPCS: 93005; 99202; 99214 ==

== ENCOUNTER 2022-11-03 08:56 | Outpatient (CLI) | payer MEDICARE, OTHER, SELFPAY | END 2022-11-03 08:57 | disposition home or self-care (01) | PROVIDERS: PCP Nurse Practitioner Family; Visit Provider Internal Medicine Cardiovascular Disease | DX: R00.2 Palpitations (principal) | CPT/HCPCS: 93270 ==

== ENCOUNTER 2022-12-08 07:42 | Outpatient (CLI) | payer MEDICARE, OTHER, SELFPAY ==
--- NOTE | 2022-12-08 09:30 | W.CARDEVENT ---
Date of service: 12/08/22 Time of Service: 09:30 Cardiac Event Recorder Referring Provider:: Ceferino Mejias Indications:: Palpitations Cardiac Event Note: This is a cardiac event monitor ordered for palpitations. Rhythm throughout was sinus. Average heart rate overall was 73. Minimum was 58, maximum 134 There were occasional premature ventricular contractions There was no atrial fibrillation, no high-grade AV block, no pauses greater than 3 seconds Patient's symptoms were reported which appeared to correlate with predominantly with PVCs, but also to sinus rhythm
== END 2022-12-08 07:43 | disposition home or self-care (01) ==
LOC: CARDOPNVT 07:42
PROVIDERS: PCP Nurse Practitioner Family; Visit Provider Internal Medicine Cardiovascular Disease
DX: R00.2 Palpitations (principal); I49.3 Ventricular premature depolarization
CPT/HCPCS: 93272

== ENCOUNTER → 2022-12-16 08:39 | Outpatient (BNVA) | payer MEDICARE, OTHER, SELFPAY | PROVIDERS: PCP Nurse Practitioner Family; Referring Provider Nurse Practitioner Family; Visit Provider Internal Medicine Cardiovascular Disease | DX: R00.2 Palpitations (principal) | CPT/HCPCS: 99212 ==

== ENCOUNTER → 2023-07-14 10:32 | Outpatient (BNVA) | payer MEDICARE, OTHER, SELFPAY | PROVIDERS: PCP Nurse Practitioner Family; Visit Provider Internal Medicine Cardiovascular Disease | DX: R00.2 Palpitations (principal) | CPT/HCPCS: 99213 ==

== ENCOUNTER 2023-08-05 09:59 | Outpatient (CLI) | payer MEDICARE, OTHER, SELFPAY ==
--- NOTE | 2023-08-05 08:15 | DI.RAD_ITS ---
Exam(s) XR WRIST RT COMPLETE EXAM: XR WRIST RT COMPLETE CLINICAL HISTORY: F/U FRACTURE. TECHNIQUE: 2D digital imaging was performed of the right wrist. Three views were obtained. PA, lat eral and oblique views were obtained. COMPARISON: No exams were available for comparison FINDINGS: BONES: A sideplate and screws set is seen in the distal right radius. No acute fracture is identifie d. A nonunited ulnar styloid process fracture is seen. No bony destructive lesion is seen. JOINTS: The carpal bones are normally aligned. Degenerative changes are seen in the wrist particularl y at the 1st CMC joint and the articulation of the scaphoid and the trapezium bone. SOFT TISSUE: Normal. IMPRESSION: 1. Postsurgical and posttraumatic changes in the wrist. 2. Degenerative changes in the wrist. DATA REPOSITORY: RADIATION DOSE DELIVERED:
== END 2023-08-05 10:00 | disposition home or self-care (01) ==
LOC: DIORS 09:59
PROVIDERS: PCP Nurse Practitioner Family; Visit Provider Student in an Organized Health Care Education/Training Program
DX: S62.101A Fracture of unspecified carpal bone, right wrist, initial encounter for closed fracture (principal); S52.501D Unspecified fracture of the lower end of right radius, subsequent encounter for closed fracture with routine healing; X58.XXXD Exposure to other specified factors, subsequent encounter
CPT/HCPCS: 99213; 73110

== ENCOUNTER 2023-11-03 15:18 | Outpatient (REF) | payer MEDICARE, OTHER, SELFPAY ==
--- OUTSIDE RECORDS SUMMARY | 2023-11-03 15:20 | XMS_ITS | Clinical Summary ---
Author Organization [facility] Address [address] [place] [address] Care Team Providers Care Parking Inspector Name Role Phone Elizabeth Webster OVERNIGHT CASHIER Primary Care Provider [phone] Social History Tobacco Use Types Packs/Day Years Used Date Smoking Tobacco: Never Assessed Sex and Gender Information Value Date Recorded Sex Assigned at Not on file Gender Identity Not on file Sexual Orientation Not on file Plan of Treatment Health Maintenance Due Date Last Done Comments Hepatitis C Screen 1950 RSV Immunization ( o r 60+ Years) (1 - 1-dose 60+ series) 2011 Fall Risk Screening 2016 COVID-19 Vaccine ( season) 2022 Care Teams Parking Inspector Relationship Specialty Start Date End Date Elizabeth Webster, OVERNIGHT CASHIER [address] [place] [address] PCP - General 10/10/16
--- OUTSIDE RECORDS SUMMARY | 2023-11-03 15:20 | XMS_ITS | Encounter Summary ---
Author Organization [facility] Address [address] [place] [address] Care Team Providers Care Watch Repair Person Name Role Phone Alonzo Reynoso MD Primary Care Provider [phone] Encounter Details Date Type Department Care Team (Latest Contact Info) Description 10/06/2016 14:55 EDT - 10/06/2016 14:56 EDT Hospital Encounter [address] [address] Unknown, ProviderMD Discharge Disposition: Auto Discharge Social History Tobacco Use Types Packs/Day Years Used Date Smoking Tobacco: Never Assessed Sex and Gender Information Value Date Recorded Sex Assigned at Not on file Gender Identity Not on file Sexual Orientation Not on file documented as of this encounter Discharge Disposition Disposition Code Departure Means Destination Auto Discharge documented in this encounter Plan of Treatment Not on file documented as of this encounter Visit Diagnoses Not on filedocumented in this encounter Care Teams Watch Repair Person Relationship Specialty Start Date End Date Alonzo Reynoso MD PCP - General 12/06/13 10/09/16 documented as of this encounter
--- OUTSIDE RECORDS SUMMARY | 2023-11-03 15:20 | XMS_ITS | Encounter Summary ---
Author Organization [facility] Address [address] [place] [address] Care Team Providers Care Exhibits Manager Name Role Phone Unavailable Primary Care Provider Unavailabl e Encounter Details Date Type Department Care Team (Latest Contact Info) Description 12/05/2013 12:00 EDT - 12/05/2013 23:59 EDT Hospital Encounter [address] [address] Unknown, Provider, Discharge Disposition: Home or Self Care Social History Tobacco Use Types Packs/Day Years Used Date Smoking Tobacco: Never Assessed Sex and Gender Information Value Date Recorded Sex Assigned at Not on file Gender Identity Not on file Sexual Orientation Not on file documented as of this encounter Discharge Disposition Disposition Code Departure Means Destination Home or Self Custodial documented in this encounter Plan of Treatment Not on file documented as of this encounter Visit Diagnoses Not on filedocumented in this encounter
--- OUTSIDE RECORDS SUMMARY | 2023-11-03 15:20 | XMS_ITS | Encounter Summary ---
Author Organization [facility] Address [address] [place] [address] Care Team Providers Care Dental Ceramist Helper Name Role Phone Unavailable Primary Care Provider Unavailabl e Encounter Details Date Type Department Care Team (Late st Contact Info) Description 12/10/2010 Results Only [facility] Laboratory Services - [facility] ([facility] [address] [place] [address] Siobhan Smith, SALOME [address] [facility],[address] [address] Social History Tobacco Use Types Packs/Day Years Used Date Smoking Tobacco: Never Assessed Sex and Gender Information Value Date Recorded Sex Assigned at Not on file Gender Identity Not on file Sexual Orientation Not on file documented as of this encounter Plan of Treatment Not on file documented as of this encounter Procedures Procedure Name Priority Date/Time Associated Diagnosis Comments PAP TEST- RESULT ONLY Routine 12/10/2010 0:00 EDT documented in this encounter Results * PAP TEST- RESULT ONLY (12/10/2010 0:00 EDT) Pathology Report: CYTOPATHOLOGY REPORT Reports generated via electronic interface contain original data; however they are lacking the format of the original report. Caution should be taken when reading/interpreti ng unformatted reports. Name: ? SADIA MARGARITA Prado ? Accession #: ? [id number] ? : ? 1950 (Age: 60) ??F ?Collect Date: ? 12/10/2010 ? Location: ? [facility] ? Receive Date: ? 12/12/2010 ? Provider: SIOBHAN SMITH MEMBER OF TECHNICAL STAFF Copy to: ?Melanie First ?[facility] ?[address] ?[place], [place] [address] ? Final Report SPECIMEN ADEQUACY ? Satisfactory for Evaluation - transformation zone component present GENERAL CATEGORIZATION ? Negative for Intraepithelial Lesion or Malignancy INTERPRETATION ? Reactive cellular changes associated with inflammation present (includes repair). Menstural/Pregnanc y Status: ??Post Menopausal Specimen/Source: ??Pap Test, Cervix/Endocervix, ThinPrep Imaging System with manual evaluation Document reviewed and electronically signed by: ? LEONARDO MENDEZ MD ? Report ??Date: 12/23/2010 12:26 HPV with Pap Test ? Date Ordered: ? 12/23/2010 ? Status: ?? Signed Out ?Date Complete: ? 12/26/2010 ? By: ??System Interface ? Date Reported: ? 12/26/2010 ? Interpretation RESULT: Negative for HPV types 16, 18, 31, 33, 35, 39, 45, 51, 52, 56, 58, 59, and 68. Comments Document reviewed and electronically signed by: ? System Interface ? Report date: 12/26/2010 By the signature above, the attending physician certifies that he/she has personally conducted a gross and/or microscopic examination of the described specimens and rendered or confirmed the above diagnosis. End of Report STEPHANIA BOYER 12/10/2010 12/12/2010 Siobhan Smith NP PATHOLOGY ORDERABLES Performing Organization Address City/State/[facility] Co de Phone Number [facility] [address] [place] [address] documented in this encounter Visit Diagnoses Not on filedocumented in this encounter
--- OUTSIDE RECORDS SUMMARY | 2023-11-03 15:20 | XMS_ITS | Encounter Summary ---
Author Organization [facility] Address [address] [place] [address] Care Team Providers Care Media Executive Name Role Phone Elizabeth Webster CASSANDRA CONSULTANT Primary Care Provider [phone] Encounter Details Date Type Department Care Team (Late st Contact Info) Description 11/08/2020 Lab Requisition [facility] Pathology & Laboratory Medicine - [address] [address] Outr Resulting Lab, Provider Social History Tobacco Use Types Packs/Day Years Used Date Smoking Tobacco: Never Assessed Sex and Gender Information Value Date Recorded Sex Assigned at Not on file Gender Identity Not on file Sexual Orientation Not on file documented as of this encounter Plan of Treatment Not on file documented as of this encounter Procedures Procedure Name Priority Date/Time Associated Diagnosis Comments FECAL BACTERIAL PATHOGENS BY PCR Routine 11/07/2020 7:00 EDT documented in this encounter Results * FECAL BACTERIAL PATHOGENS BY PCR (11/07/2020 7:00 EDT) Salmonella PCR Negative Negative 11/09/2020 11:09 EDT [facility] Shigella/Enteroin vasive E. coli Negative Negative 11/09/2020 11:09 EDT [facility] HN [facility] CAMPYLOBACTER PCR Negative Negative 11/09/2020 11:09 EDT [facility] Shiga Toxin PCR Negative Negative 11:09 EDT [facility] Feces SPECIMEN FROM RECTUM / Unknown 11/07/2020 7:00 EDT 11/08/2020 21:23 EDT Provider Outr Resulting Lab MICROBIOLOGY - GENERAL ORDERABLES [facility] [address] [place] [address] documented in this encounter Visit Diagnoses Not on filedocumented in this encounter Care Teams Media Executive Relationship Specialty Start Date End Date Elizabeth Webster NP [address] [place] [address] PCP - General 10/10/16 documented as of this encounter
--- OUTSIDE RECORDS SUMMARY | 2023-11-03 15:20 | XMS_ITS | Referral Summary ---
Author Organization [facility] Address [address] [place] [address] Care Team Providers Care Clinic Supervisor Name Role Phone Elizabeth Webster COMMODITY LOAN CLERK Primary Care Provider [phone] Social History Tobacco Use Types Packs/Day Years Used Date Smoking Tobacco: Never Assessed Sex and Gender Information Value Date Recorded Sex Assigned at Not on file Gender Identity Not on file Sexual Orientation Not on file Plan of Treatment Not on file Care Teams Clinic Supervisor Relationship Specialty Start Date End Date Elizabeth Webster, COMMODITY LOAN CLERK [address] [place] [address] PCP - General 10/10/16
--- OUTSIDE RECORDS SUMMARY | 2023-11-03 15:20 | XMS_ITS | Encounter Summary ---
Author Organization [facility] Address [address] [place] [address] Care Team Providers Care Director Sports Name Role Phone Anup Benson MD Primary Care Provider [phone] Encounter Details Date Type Department Care Team (Late st Contact Info) Description 12/05/2013 Results Only [facility] [phone] Coleman Gong MD [address] [place] [address] [address] [place], [place] [id number] Social History Tobacco Use Types Packs/Day Years Used Date Smoking Tobacco: Never Assessed Sex and Gender Information Value Date Recorded Sex Assigned at Not on file Gender Identity Not on file Sexual Orientation Not on file documented as of this encounter Plan of Treatment Not on file documented as of this encounter Procedures Procedure Name Priority Date/Time Associated Diagnosis Comments SURGICAL PATHOLOGY Routine 12/05/2013 9:26 EDT documented in this encounter Results * SURGICAL PATHOLOGY (12/05/2013 9:26 EDT) Pathology Report: SURGICAL PATHOLOGY REPORT Reports generated via electronic interface contain original data; however they are lacking the format of the original report. Caution should be taken when reading/interpreti ng unformatted reports. Name: ? MARGARITA MCCULLOUGH ? Accession #: ? [id number] ? : ? 1950 (Age: 63) ??F ? Collect Date: ? 12/05/2013 ? Location: ? [facility] ? Receive Date: ? 12/05/2013 ? Provider: COLEMAN GONG MD Copy to: ANUP BENSON MD ? Final Pathologic Diagnosis: COLON, TRANSVERSE, BIOPSY: - ??Colonic mucosa with no specific pathologic features. Document reviewed and electronically signed by: NATHANIEL DOMÍNGUEZ MD Report ??Date: 12/08/2013 12:06 By the signature above, the attending physician certifies that he/she has personally conducted a gross and/or microscopic examination of the described specimens and rendered or confirmed the above diagnosis. Specimen(s) Received: Bx transverse colon Clinical History: Diarrhea Gross Description: ? Received in formalin labelled with proper patient identification (initials C, B) and biopsy, transverse colon are two light hamilton tissues (0.2 x 0.2 x 0.1 cm and 0.3 x 0.2 x 0.2 cm). Entirely submitted in block 1. Brittany Rapp 12/06/2013 10:09 AM End of Report [facility] 12/05/2013 9:26 EDT 12/05/2013 9:26 EDT Coleman Gong MD PATHOLOGY [facility]A [facility] [address] [place] [address] documented in this encounter Visit Diagnoses Not on filedocumented in this encounter Care Teams Director Sports Relationship Specialty Start Date End Date Anup Benson MD PCP - General 12/06/13 10/09/16 documented as of this encounter
--- OUTSIDE RECORDS SUMMARY | 2023-11-03 15:20 | XMS_ITS | Encounter Summary ---
Author Organization [facility] Address [facility] [place] [address] Care Team Providers Care Fisherman Helper Name Role Phone CassiaAshleycesia BROWN Primary Care Provider [phone] Reason for Visit * Consultation (Routine) - Specialty Diagnoses / Procedures Referred By Carolina solano Referred To Contact Vascular Surgery Diagnoses Asymptomatic varicose veins of unspecified lower extremity Liza Antony APRN [address] [facility] [address] [facility] [address] [place] [address] Referral ID Status Reason Start Date Expiration Date V isits Requested Visits Authorized [id number] Consult, Test & [facility] PCP Updated and/or Approved 03/20/2020 09/17/2020 6 6 Encounter Details Date Type Department Care Team (Late st Contact Info) Description 06/05/2020 4:00 PM EDT Office Visit [place] [address] Josie Morris APRN [facility] [place] [address] Varicose veins of right lower extremity with pain Social History Tobacco Use Types Packs/Day Years Used Date Smoking Tobacco: Never Smokeless Tobacco: Never Sex and Gender Information Value Date Recorded Sex Assigned at Not on file Gender Identity Not on file Sexual Orientation Not on file documented as of this encounter Last Filed Vital Signs Vital Sign Reading Time Taken Comments Blood Pressure 151/73 06/05/2020 3:56 PM EDT Pulse 73 06/05/2020 3:56 PM EDT Temperature - - Respiratory Rate - - Oxygen Saturation - - Inhaled Oxygen Concentration - - Weight 69.9 kg (154 lb) 06/05/2020 3:56 PM EDT r eported Height 157.5 cm (5' 2) 06/05/2020 3:56 PM EDT r eported Body Mass Index 28.17 06/05/2020 3:56 PM EDT documented in this encounter Progress Notes * Josie Morris APRN - 06/05/2020 4:00 PM EDT Consult requested by Liza Antony APRN for evaluation of painful varicose veins. History: This is a 70 y.o. female with GERD who has noted R LE varicose veins for 30 years. The patient has noted the following symptoms below for 2 months lasted 3 days and now not discomfort. Seh used heat and elevation The patient has not used 20-30mmHg compression stockings Y N SYMPTOM X Leg aching x Leg swelling X Leg elevation greater than 20 minutes/3x per day x Daily use of compression stockings 20-30mmHg (6-8 weeks) X Family history of varicose veins x History of more than two episodes of phlebitis x Refractory edema x Stasis dermatitis X History of DVT X Prior venous surgery X Prior ulceration X Current ulceration X History of two more episodes of bleeding varicosities X Chronic cellulitis Review of Systems: Prior cardiac history: no Prior pulmonary history: no Prior issues with general anesthesia: no Family history of malignant hyperthermia: no Issues with snoring or sleep apnea: no Current Outpatient Medications on File Prior to Visit Medication Sig Dispense Refill ??? atorvastatin (Lipitor) 10 mg Tablet Take 10 mg by mouth daily. Indications: pt unsure of dose ??? omeprazole (PriLOSEC) 10 mg Capsule, Delayed Release(E.C.) Take 10 mg by mouth daily. Indications: pt unsire of dose ??? aspirin EC 81 mg Tablet, Delayed Release (E.C.) Take 81 mg by mouth daily. ??? multivitamin (THERAGRAN) Tablet Take 1 tablet by mouth daily. No current facility-administered medications on file prior to visit. No Known Allergies PE: Patient Vitals for the past 24 hrs: Pulse BP 06/05/20 1556 73 151/73 Body mass index is 28.17 kg/m??. Heart: RRR, no murmurs, no S3 or S4 Chest: CTA, no wheeze Location of the varicosities: right Size of the varicosities (greater than 3mm): 8-15 mm right upper medial thigh and medial calf VV Carotid pulses equal and bilateral No palpable pulsatile abdominal masses, no abdominal bruits Palpable bilateral femoral, popliteal and tibial pulses Y N PHYSICAL FINDINGS X Radial pulses bilaterally X DP and PT pulses bilaterally x Palp cords X Evidence of healed ulceration X Stasis dermatitis X Cellulitis X Palpable Thrills Assessment/Plan: 70 yo female with long standing history of right LE varicose veins which were symptomatic for three days In April Pain had since resolved. Discussed natural history of varicose veins. Recommend compression 20-30 mmHg prescription written to be worn daily. If she has recurrent symtoms she will call to schedule R LE valvular incomp study and see MD. documented in this encounter Plan of Treatment Not on file documented as of this encounter Visit Diagnoses Diagnosis Varicose veins of right lower extremity with pain Varicose veins of lower extremities with other complications documented in this encounter Care Teams Fisherman Helper Relationship Specialty Start Date End Date Liza Antony APRN [address] [place] [address] PCP - General Family Medicine 03/30/20 documented as of this encounter
--- OUTSIDE RECORDS SUMMARY | 2023-11-03 15:20 | XMS_ITS | Clinical Summary ---
Author Organization [facility] Address [facility] [place] [address] Care Team Providers Care Intellectual Property Counsel Name Role Phone Liza Antony APRN Primary Care Provider [phone] Allergies No known active allergies Medications Medication Sig Dispensed Refills Start Date End Date Status atorvastatin (Lipitor) 10 mg TabletIndications:pt unsure of dose Take 10 mg by mouth daily. Indications: pt unsure of dose Active omeprazole (PriLOSEC) 10 mg Capsule, Delayed Release(E.C.)Indicatio ns:pt unsire of dose Take 10 mg by mouth daily. Indications: pt unsire of dose Active aspirin EC 81 mg Tablet, Delayed Release (E.C.) Take 81 mg by mouth daily. Active multivitamin (THERAGRAN) Tablet Take 1 tablet by mouth daily. Active Active Problems No known active problems Social History Tobacco Use Types Packs/Day Years Used Date Smoking Tobacco: Never Smokeless Tobacco: Never Sex and Gender Information Value Date Recorded Sex Assigned at Not on file Gender Identity Not on file Sexual Orientation Not on file Last Filed Vital Signs Vital Sign Reading [...] Mass Index 28.17 06/05/2020 3:56 PM EDT Plan of Treatment Health Maintenance Due Date Last Done Comments CT Colonography 1950 Colonoscopy 1950 Colorectal Cancer Screening 1950 FIT DNA 1950 FIT 1950 Sigmoidoscopy (10 year) with FIT yearly 1950 Sigmoidoscopy 1950 Hepatitis C Screening 1969 Tdap adult 1970 Tetanus vaccine 1970 Breast Cancer Share Decision Needed 1991 Breast Cancer screening 1991 Zoster vaccine (1 of 2) 2001 Advance Directive 2006 Bone Density Scan 2016 Pneumoccocal Vaccine: 65+ (1 of 1 - PCV) 2016 Covid-19 Vaccine (1 - 2022-24 season) 2022 Influenza (Flu) vaccine (1 o f 1 - Influenza standard series) 11/08/2023 Care Teams Intellectual Property Counsel Relationship Specialty Start Date End Date Liza Antony APRN [address] [place], [place] [id number] PCP - General Family Medicine 03/30/20
--- OUTSIDE RECORDS SUMMARY | 2023-11-03 15:20 | XMS_ITS | Encounter Summary ---
Author Organization [facility] Address [address] [place] [address] Care Team Providers Care Buyer Grain Name Role Phone Unavailable Primary Care Provider Unavailabl e Encounter Details Date Type Department Care Team (Late st Contact Info) Description 10/02/1999 Results Only [facility] [address] [place] [address] Fanta Crawford, [address] [place] [address] Social History Tobacco Use Types Packs/Day Years Used Date Smoking Tobacco: Never Assessed Sex and Gender Information Value Date Recorded Sex Assigned at Not on file Gender Identity Not on file Sexual Orientation Not on file documented as of this encounter Plan of Treatment Not on file documented as of this encounter Procedures Procedure Name Priority Date/Time Associated Diagnosis Comments CYTOPATHOLOGY Routine 10/02/1999 0:00 EDT documented in this encounter Results * CYTOPATHOLOGY (10/02/1999 0:00 EDT) Pathology Report: CYTOPATHOLOGY REPORT Reports generated via electronic interface contain original data; however they are lacking the format of the original report. Caution should be taken when reading/interpreti ng unformatted reports. Name: ? SADIA MARGARITA Prado ? Accession #: ? [id number] : ? 1950 (Age: 49) ??F ?Collect Date: ? 10/02/1999 Location: ? [facility] ? Receive Date: ? 10/07/1999 Provider: ?FANTA CRAWFORD RECREATIONAL VEHICLE RESORT MANAGER Copy to: ? Specimen/Source: ?ThinPrep Pap Test, Cervix/Endocervix Last Menstrual Period: ? 09/13/99 ? SPECIMEN ADEQUACY ? Satisfactory for evaluation. GENERAL CATEGORIZATION ? Within Normal Limits ? Document reviewed and electronically signed by: ? Bravo Meléndez, MADINA(ASCP) ? Report Date: ??10/09/1999 07:36 End of Report STEPHANIA BOYER 10/02/1999 10/07/1999 Fanta Crawford RECREATIONAL VEHICLE RESORT MANAGER PATHOLOGY ORDERABLES STEPHANIA BOYER [address] [place] [address] documented in this encounter Visit Diagnoses Not on filedocumented in this encounter
--- OUTSIDE RECORDS SUMMARY | 2023-11-03 15:20 | XMS_ITS | Encounter Summary ---
Author Organization [facility] Address [address] [place] [address] Care Team Providers Care Home Security Alarm Installer Name Role Phone Elizabeth Webster HYPERBARIC TECHNICIAN Primary Care Provider [phone] Encounter Details Date Type Department Care Team (Late st Contact Info) Description 11/08/2020 Lab Requisition [facility] Pathology & Laboratory Medicine - [address] [address] Outr Resulting Lab, Provider Social History Tobacco [...] Procedure Name Priority Date/Time Associated Diagnosis Comments GIARDIA AND CRYPTOSPORIDIUM ANTIGENS Routine 11/07/2020 7:00 EDT OVA/PARASITE EXAM Routine 11/07/2020 7:0 0 EDT documented in this encounter Results * GIARDIA AND CRYPTOSPORIDIUM ANTIGENS (11/07/2020 7:00 EDT) Giardia and Cryptosporidium Cryptosporidium Antigen Neg and Giardia Antigen Neg Cryptosporidium Antigen Neg and Giardia Antigen Neg 12:09 EDT [facility] Feces SPECIMEN FROM RECTUM / Unknown 11/07/2020 7:00 EDT 11/08/2020 21:23 EDT Provider Outr Resulting Lab MICROBIOLOGY - GENERAL ORDERABLES Performing Organization Address City/[facility] Co de Phone Number [facility] [address] [place] [address] * OVA/PARASITE EXAM (11/07/2020 7:00 EDT) Parasite No ova and parasites seen. 11/09/2020 15:21 EDT [facility] Feces SPECIMEN FROM RECTUM / Unknown 11/07/2020 7:00 EDT 11/08/2020 21:23 EDT Narrative [facility] - 11/09/2020 15:21 EDT (If Cryptosporidium, Cyclospora, or Microsporidium are suspected, specific tests must be requested.) Single negative specimen does not rule out the possibility of a parasitic infection. Provider Outr Resulting Lab MICROBIOLOGY - GENERAL ORDERABLES Performing Organization Address [facility] Co de Phone Number [facility] [address] [place] [address] documented in this encounter Visit Diagnoses Not on filedocumented in this encounter Care Teams Home Security Alarm Installer Relationship Specialty Start Date End Date Elizabeth Webster NP [address] [place] [address] PCP - General 10/10/16 documented as of this encounter
--- OUTSIDE RECORDS SUMMARY | 2023-11-03 15:20 | XMS_ITS | Encounter Summary ---
Author Organization [facility] Address [address] [place] [address] Care Team Providers Care Down Filler Name Role Phone Unavailable Primary Care Provider Unavailabl e Encounter Details Date Type Department Care Team (Late st Contact Info) Description 09/01/2000 Results Only [facility] - [facility] [address] [place] [address] Siobhan Smith, PARTS LISTER [address] [phone] Social History Tobacco Use Types [...] Priority Date/Time Associated Diagnosis Comments CYTOPATHOLOGY Routine 09/01/2000 0:00 EDT documented in this encounter Results * CYTOPATHOLOGY (09/01/2000 0:00 EDT) Pathology Report: CYTOPATHOLOGY REPORT Reports generated via electronic interface contain original data; however they are lacking the format of the original report. Caution should be taken when reading/interpreti ng unformatted reports. Name: ? SADIA MARGARITA Prado ? Accession #: ? [id number] : ? 1950 (Age: 50) ??F ?Collect Date: ? 09/01/2000 Location: ? [facility] ? Receive Date: ? 09/03/2000 Provider: ?SIOBHAN SMITH NP Copy to: ? Specimen/Source: ?ThinPrep Pap Test, Cervix/Endocervix Last Menstrual Period: ? 08/13/00 ? SPECIMEN ADEQUACY ? Satisfactory for evaluation. GENERAL CATEGORIZATION ? Within Normal Limits ? Document reviewed and electronically signed by: ? MADINA Ramesh(ASCP) ? Report Date: ??09/04/2000 12:57 End of Report [facility] 09/01/2000 09/03/2000 Siobhan Smith NP PATHOLOGY ORDERABLES [facility] [address] [place] [address] documented in this encounter Visit Diagnoses Not on filedocumented in this encounter
--- OUTSIDE RECORDS SUMMARY | 2023-11-03 15:20 | XMS_ITS | Encounter Summary ---
Author Organization [facility] Address [address] [place] [address] Care Team Providers Care Real Estate Salesperson Name Role Phone Unavailable Primary Care Provider Unavailabl e Encounter Details Date Type Department Care Team (Late st Contact Info) Description 05/08/2009 Results Only [facility] ([facility] [place] [address] [place] [address] Siobhan Smith NP [address] [facility],[address] [phone] Social History Tobacco Use Types Packs/Day Years Used Date Smoking Tobacco: Never Assessed Sex and Gender Information Value Date Recorded Sex Assigned at Not on file Gender Identity Not on file Sexual Orientation Not on file documented as of this encounter Plan of Treatment Not on file documented as of this encounter Procedures Procedure Name Priority Date/Time Associated Diagnosis Comments HPV DETECTION, HIGH RISK TYPES Routine 05/08/2009 15:38 EST CYTOPATHOLOGY Routine 05/08/2009 0:00 EST documented in this encounter Results * HUMAN PAPILLOMA VIRUS DNA TEST (05/08/2009 15:38 EST) Specimen Description Cervix, ThinPrep vial [facility] Result Negative for HPV types 16, 18, 31, 33, 35, 39, 45, 51, 52, 56, 58, 59, and 68. [facility] Report Status Final 05/16/2009 [facility] 05/08/2009 15:3 8 EST 05/10/2009 15:38 EST Siobhan Singh Sarah PROGRAMMER MICROBIOLOGY - GENER AL ORDERABLES [facility] [address] [address] * CYTOPATHOLOGY (05/08/2009 0:00 EST) Pathology Report: CYTOPATHOLOGY REPORT ? Reports generated via electronic interface contain original data; ? however they are lacking the format of the original report. ? Caution should be taken when reading/interpreti ng unformatted reports. ? Name: ? MARGARITA MCCULLOUGH ? Accession #: ? [id number] ? : ? 1950 (Age: 59) ??F ?Collect Date: ? 05/08/2009 ? Location: ? [facility] ? Receive Date: ? 05/09/2009 ? Provider: ?SIOBHAN W BESCH PROGRAMMER ? Copy to: ? Specimen/Source: ?Pap Test, Cervix/Endocervix, ThinPrep Imaging System ? with manual evaluation ? Last Menstrual Period: ? Other: ? HPVDX - HPV testing requested regardless of diagnosis on current ThinPrep Pap ?? test. ? SPECIMEN ADEQUACY ? Satisfactory for Evaluation ? - transformation zone component present ? GENERAL CATEGORIZATION ? Negative for Intraepithelial Lesion or Malignancy ? Document reviewed and electronically signed by: ? Deejay Jules CT(ASCP) ? Report Date: ??05/10/2009 10:00 ? End of Report ? [facility] 05/08/2009 05/09/2009 Siobhan Smith PROGRAMMER PATHOLOGY ORDERABLES [facility] [address] [place] [address] documented in this encounter Visit Diagnoses Not on filedocumented in this encounter
--- OUTSIDE RECORDS SUMMARY | 2023-11-03 15:20 | XMS_ITS | Encounter Summary ---
Author Organization [facility] Address [address] [place] [address] Care Team Providers Care Bath Steward Name Role Phone Alonzo Reynoso MD Primary Care Provider Encounter Details Date Type Department Care Team ([facility] st Contact Info) Description 10/06/2016 Results Only [facility] [phone] Elizabeth Barnett, BUILDING CONSTRUCTION SUPERINTENDENT [address] [place] [phone] Social History Tobacco Use Types Packs/Day Years Used Date Smoking Tobacco: Never Assessed Sex and Gender Information Value Date Recorded Sex Assigned at Not on file Gender Identity Not on file Sexual Orientation Not on file documented as of this encounter Plan of Treatment Not on file documented as of this encounter Procedures Procedure Name Priority Date/Time Associated Diagnosis Comments SURGICAL PATHOLOGY Routine 10/06/2016 10 :06 EDT documented in this encounter Results * SURGICAL PATHOLOGY (10/06/2016 10:06 EDT) Pathology Report: SURGICAL PATHOLOGY REPORT Reports generated via electronic interface contain original data; however they are lacking the format of the original report. Caution should be taken when reading/interpret ing unformatted reports. Name: ? MARGARITA MCCULLOUGH ? Accession #: ? [id number] ? : ? 1950 (Age: 66) ??F ? Collect Date: ? 10/06/2016 ? Location: ? [facility] ? Receive Date: ? 10/07/2016 ? Provider: ELIZABETH BARNETT BUILDING CONSTRUCTION SUPERINTENDENT Copy to: ? Final Pathologic Diagnosis: A. ??SKIN OF BACK, SHAVE BIOPSY: - Seborrheic keratosis. B. ??SKIN OF CHEST, SHAVE BIOPSY: - Seborrheic keratosis. Microscopic Description: The stratum corneum is thickened by compact and basketweave orthokeratosis with formation of horn pseudocysts. ??The epidermis is acanthotic with formation of broad and anastomosing trabeculae. ??The trabeculae are composed of basaloid keratinocytes with round uniform nuclei. ??The keratinocytes have a variable amount of melanin pigment. ??(Dr. Sheffield)/[facility] Document reviewed and electronically signed by: TOSHIA SHEFFIELD MD Report ??Date: 10/08/2016 15:58 By the signature above, the attending physician certifies that he/she has personally conducted a gross and/or microscopic examination of the described specimens and rendered or confirmed the above diagnosis. Specimen(s) Received: A. ??Shave biopsy back B. ??Shave biopsy chest Clinical History: A. Pigmented plaque; B. Skin nodule Gross Description: A. ?Received in formalin labelled with proper patient identification (initials C, S) and skin back is an irregular skin shave, 0.9 x 0.8 x 0.15 cm. The skin surface is mottled smith to hamilton and brown with areas and granularity. The margin is inked. Trisected and entirely submitted in A1. B. ?Received in formalin labelled with proper patient identification (initials C, S) and skin chest is a rubbery nodular dull hamilton skin lesion, 0.6 x 0.4 x 0.1 cm. The margin is inked. Bisected and entirely submitted in B1. BLAIRE Smiley ([facility]) 10/07/2016 12:17 PM End of Report [facility] 10/06/2016 10:0 6 EDT 10/07/2016 10:06 EDT Elizabeth Barnett BUILDING CONSTRUCTION SUPERINTENDENT PATHOLOGY ORDERABLES [facility] [address] [place] [address] documented in this encounter Visit Diagnoses Not on filedocumented in this encounter Care Teams Bath Steward Relationship Specialty Start Date End Date Alonzo Reynoso MD PCP - General 12/06/13 10/09/16 documented as of this encounter
[2023-11-03 16:50] LABS: Calculated LDL 107 mg/dL (<100); Cholesterol 188 mg/dL (<200); HDL Cholesterol 58 mg/dL (40-60); Triglyceride 118 mg/dL (<150)
[2023-11-04 04:07] LABS: ALT 33 U/L (14-59); AST 26 U/L (15-37); Albumin 3.9 g/dL (3.4-5.0); Alkaline Phosphatase 81 U/L (46-116); Anion Gap 11.5 mmol/L (3-11); BUN 20 mg/dL (7-18); Bilirubin, Total 0.37 mg/dL (0.2-1.0); CO2 25.5 mmol/L (21.0-32.0); CREATININE 0.8 mg/dL (0.55-1.02); Calcium 10.1 mg/dL (8.5-10.1); Chloride 105 mmol/L (98-107); Estimated GFR 78.24 (mL/min/1.73m2); Glucose 94 mg/dL (74-106); Potassium 4.6 mmol/L (3.5-5.1); Sodium 142 mmol/L (136-145); Total Protein 7.3 g/dL (6.4-8.2)
== END 2023-11-03 15:19 | disposition home or self-care (01) ==
LOC: NCHCN 15:18
PROVIDERS: PCP Nurse Practitioner Family; Visit Provider Nurse Practitioner Family
DX: E78.5 Hyperlipidemia, unspecified (principal)
CPT/HCPCS: 80053; 80061

== ENCOUNTER 2024-07-12 10:20 | Outpatient (CLI) | payer MEDICARE, OTHER, SELFPAY ==
--- NOTE | 2024-07-12 10:15 | RT.EKG_ITS ---
APPROVED REPORT Exam: Resting ECG Reason for Exam: palpitations Patient Location: O HR:70 bpm ECG Measurements Heart Rate 70 AXIS MD 133 P 12 QRSd 87 QRS -25 QT 371 T -3 QTc 401 Conclusion Sinus rhythm...normal P axis, V-rate 50- 99 Low voltage, precordial leads...precordial leads <1.0mV Borderline T abnormalities, anterior leads...T flat or neg, V2-V4 Baseline wander in lead(s) V1
== END 2024-07-12 10:21 | disposition home or self-care (01) ==
LOC: DI.CARD 10:21
PROVIDERS: PCP Nurse Practitioner Family; Visit Provider Internal Medicine Cardiovascular Disease
DX: R00.2 Palpitations (principal)
CPT/HCPCS: 93010

== ENCOUNTER → 2024-07-12 10:29 | Outpatient (BNVA) | payer MEDICARE, OTHER, SELFPAY | PROVIDERS: PCP Nurse Practitioner Family; Visit Provider Internal Medicine Cardiovascular Disease | DX: R00.2 Palpitations (principal) | CPT/HCPCS: 93005; 99213 ==

== ENCOUNTER 2024-11-08 15:11 | Outpatient (REF) | payer MEDICARE, OTHER, SELFPAY ==
[2024-11-08 19:06] LABS: Abs Immature Grans 0.02 10^3/uL (0.0-0.06); HCT 43.6 % (36.0-46.0); HGB 13.7 g/dL (11.2-15.7); Immature Grans % 0.3 %; MCH 29.1 pg (27.0-33.0); MCHC 31.4 % (32.0-36.0); MCV 93 fL (80-95); MPV 11.2 fL (8.0-11.0); Platelet Count 280 10^3/uL (130-400); RBC 4.70 10^6/uL (3.93-5.22); RDW 13.4 % (11.7-14.6); RDW-SD 45.5 fL; WBC 5.95 10^3/uL (4.4-10.8)
[2024-11-08 19:43] LABS: ALT 39 U/L (14-59); AST 23 U/L (15-37); Albumin 4.0 g/dL (3.4-5.0); Alkaline Phosphatase 99 U/L (46-116); Anion Gap 7.9 mmol/L (3-11); BUN 21 mg/dL (7-18); Bilirubin, Total 0.4 mg/dL (0.2-1.0); CO2 31.1 mmol/L (21.0-32.0); Calcium 9.4 mg/dL (8.5-10.1); Chloride 104 mmol/L (98-107); Estimated GFR 91.26 (mL/min/1.73m2); Glucose 121 mg/dL (74-106); Potassium 4.4 mmol/L (3.5-5.1); Sodium 143 mmol/L (136-145); Total Protein 6.7 g/dL (6.4-8.2); Vitamin B12 810 pg/mL (193-986)
== END 2024-11-08 15:12 | disposition home or self-care (01) ==
LOC: NCHCN 15:11
PROVIDERS: PCP Nurse Practitioner Family; Visit Provider Student in an Organized Health Care Education/Training Program
DX: R00.2 Palpitations (principal); K21.9 Gastro-esophageal reflux disease without esophagitis; M17.9 Osteoarthritis of knee, unspecified
CPT/HCPCS: 80053; 82607; 85025

== ENCOUNTER 2024-11-21 00:36 | Outpatient (CLI) | payer MEDICARE, OTHER, SELFPAY ==
--- NOTE | 2024-11-21 | DI.MAMMO_ITS ---
Exam(s) MAMMO SCREENING EXAM: MAMMO SCREENING CLINICAL HISTORY: SCREENING MAMMO Z12.31 TECHNIQUE: Bilateral full field digital CC and MLO mammographic images were obtained with 3D tomosynthesis and utilizing computer aided detection (CAD). COMPARISON: Comparison is made with prior examinations. FINDINGS: Masses/Architectural Distortion: No suspicious masses or areas of architectural distortion are present. Microcalcifications: No suspicious pleomorphic-type are seen. Skin Thickening/Nipple Retraction: None. IMPRESSION: 1. No significant interval change with no specific features of malignancy noted. 2. Unless there is more urgent need, screening mammography is recommended, as per [employer] [employer] guidelines. BI-RADS Category 1 - Negative Breast Density - Category B - There are scattered areas of fibroglandular density. Breast density Category C or D implies that the patient has dense breast tissue. Dense breast tissue can make it harder to find cancer on a mammogram. Dense breast tissue is also associated with an increased risk of breast cancer. This information about the result of the mammogram report was provided to the patient to raise their awareness. Use this report when you speak with the patient about their risks for breast cancer, which includes their family history. At that time, you may recommend additional screening tests (Ultrasound or MRI) as these tests may add significant information. A negative radiographic report should not delay biopsy if a dominant or clinically suspicious mass is present. Up to ten percent of cancers are not identified on mammography. A negative report may reinforce clinical impression. Adenosis and dense breasts may obscure an underlying neoplasm. False positive reports average 6 to 10%. Patient will receive a letter notifying them of these results.
== END 2024-11-21 00:56 ==
PROVIDERS: PCP Student in an Organized Health Care Education/Training Program; Visit Provider Student in an Organized Health Care Education/Training Program
DX: Z12.31 Encounter for screening mammogram for malignant neoplasm of breast (principal)
CPT/HCPCS: 77063; 77067

== ENCOUNTER 2024-12-28 01:24 | Outpatient (CLI) | payer MEDICARE, OTHER, SELFPAY ==
--- NOTE | 2024-12-28 | DI.DEXA_ITS ---
Exam(s) XR DEXA BONE DENSITY W/WO SUMMER EXAM: XR DEXA BONE DENSITY W/WO SUMMER CLINICAL HISTORY: SCREENING FOR OSTEOPOROSIS, Z78.0,asymptomatic postmenopausal state TECHNIQUE: COMPARISON: CR XR DEXA BONE DENSITY W/WO SUMMER from 09/13/2021 FINDINGS: Lateral Spine Image: Unremarkable. No compression deformities identified. Left hip: Total T-Score: -0.2. This compares to 0.0 on the prior examination. Total Z-Score: 1.5 T- and Z-scores: There is no evidence of osteoporosis. Lumbar Spine: Total T-Score: -0.8. This is show no significant change compared to the prior examination. Total Z-Score: 1.6 T- and Z-scores: Within normal limits. IMPRESSION: No evidence of osteoporosis.
== END 2024-12-28 01:44 ==
LOC: DI 01:24
PROVIDERS: PCP Student in an Organized Health Care Education/Training Program; Visit Provider Student in an Organized Health Care Education/Training Program
DX: Z13.820 Encounter for screening for osteoporosis (principal); Z78.0 Asymptomatic menopausal state
CPT/HCPCS: 77080